=== PATIENT | female | born 2000 | race Caucasian/White ===

== ENCOUNTER 2023-11-10 18:14 | Emergency (ER) | payer OTHER, SELFPAY ==
[2023-11-10 18:22] VITALS: BP 130/74; PULSE 106; RESP 20; TEMP 38.6; O2SAT 98
--- NOTE | 2023-11-10 20:36 | ED.URI ---
HPI - URI/Sore Throat General Chief Complaint: Upper Respiratory Infection Stated Complaint: Fever/Cough/Shortness of Breath Time Seen by Provider: 11/10/23 20:36 Source: patient, RN notes reviewed and old records reviewed Mode of arrival: ambulatory Limitations: no limitations History of Present Illness HPI Narrative: 23 year old female presents to [facility] care with complaints of fever up to 101F, cough, some shortness of breath, body aches and chills which started this morning.Patient reports that she has not taken anything for her symptoms. Patient is febrile at time of triage, respirations even and nonlabored with no tachypnea or any retractions, SAO2 98% on room air. Patient reports no known ill contacts. MD elicited complaint: fever, cough and other (Chills and body aches) Onset (ago): hour(s) (this morning) Pain scale (0-10): 5 Description of mucous: clear Able to tolerate fluids by mouth: Yes Associated symptoms: fever, chills, myalgias and cough Treatments prior to arrival: none Related Data Allergies Allergy/AdvReac Type Severity Reaction Status Date / Time No Known Allergies Allergy Verified 11/10/23 19:01 Review of Systems Review of Systems: CONSTITUTIONAL:Reports malaise, chills, sweats, or fever. EYES: Denies visual changes, redness, or discharge. ENT: Reports rhinorrhea, congestion,no sinus pain,no otalgia and no sore throat. CARDIOVASCULAR: Denies chest pain, palpitations, or edema. RESPIRATORY: Reports cough.? states dyspnea at times with cough GASTROINTESTINAL: Denies abdominal pain, nausea, vomiting, diarrhea SKIN: Denies rash or itching. MUSCULOSKELETAL:Reports myalgia. NEUROLOGIC: Denies headache. All systems reviewed & are unremarkable except as noted in HPI and below PMFSH Social History Social History (Updated 11/13/23 @ 16:37 by Linda Ospina NP) Smoking status: Never smoker Alcohol intake: current Alcohol use details: social Substance use type: does not use Gender identity (if verbalized by the patient): Female Comments At time of signature, agree with nursing past medical, surgical, social and family history. There is no relevant family history pertinent to the presenting complaint Exam Narrative: GENERAL: Well-appearing, well-nourished, and in no acute distress. HEAD: Normocephalic EYES: PERRLA, conjunctivae clear ENT: Nares clear, turbinates edematous and erythematous, clear discharge. Mucous membranes moist. TM pearly fischer with dull light reflex bilaterally; no tragal tenderness. Oropharynx erythematous without lesions. Tonsils not enlarged and without exudate, no drooling, no hoarseness, no trismus, uvula midline. NECK: Supple. No lymphadenopathy CHEST: Clear to auscultation, breath sounds equal. No wheezing, rhonchi, rales, or stridor. No respiratory distress, speaks in full sentences.cough, no dyspnea noted SAO2 98% on room air HEART: Regular rate and rhythm. No murmur heard. SKIN: Warm, dry, no rash. NEURO: Alert and oriented x3. PSYCH: Normal mood and affect Course Course Emergency Course: Patient is aware of diagnosis, understands and agrees to treatment plan.? Anticipatory guidance given.? Patient agrees to follow-up as directed and is aware of reasons to seek care at the emergency department. Portions of this record may have been created with voice recognition software Level of Care: Express Care Visit Vital Signs Vital signs: Vital Signs Temperature 38.6 C H 11/10/23 18:22 Pulse Rate 106 H 11/10/23 18:22 Respiratory Rate 20 11/10/23 18:22 Blood Pressure 130/74 11/10/23 18:22 Pulse Oximetry 98 11/10/23 18:22 Oxygen Delivery Room Air 11/10/23 18:22 Temperature 38.6 C H 11/10/23 18:22 Pulse Rate 106 H 11/10/23 18:22 Respiratory Rate 20 11/10/23 18:22 Blood Pressure 130/74 11/10/23 18:22 Pulse Oximetry 98 11/10/23 18:22 Oxygen Delivery Room Air 11/10/23 18:22 Reviewed MDM
== END 2023-11-10 20:45 | disposition home or self-care (01) ==
PROVIDERS: Emergency Provider Registered Nurse
DX: J10.1 Influenza due to other identified influenza virus with other respiratory manifestations (principal); Z20.822 Contact with and (suspected) exposure to COVID-19
CPT/HCPCS: 87426; 87804; 99213; C9803; G0463